=== PATIENT | female | born 1990 | race Caucasian/White ===

== ENCOUNTER 2017-03-16 07:46 | Day surgery (SDC) | payer OTHER ==
[~2017-03-16 07:46] MED LIST: RINGERS SOLUTION,LACTATED 1,000 ML IV PRN
--- OUTSIDE RECORDS SUMMARY | 2017-03-16 07:49 | XMS REPORT | Continuity of Care Document ---
:1990 Author Organization [facility] ([facility]) Address [address] [place] [address] Phone [phone] Care Team Providers Name Role Phone Provider, No-Primary Care Primary Care Provider Unavailable Source Comments This disclosure is being made pursuant to the Care Everywhere program, applicable federal and state laws, and may not contain all informaitonavailable regarding this patient.[facility] ([facility]) Active Allergies and Adverse Reactions No Known Allergies Current Medications Prescription Sig. Disp. Refills Start Date End Date Status multivitamin Take 1 tablet by Active with minerals 28-0.8 mouth daily. mg per tablet ibuprofen 800 mg Take 1 tablet (800 60 tablet 0 11/09/2016 Active tablet mg total) by mouth every 8 hours as needed for Pain. witch chapin pad as needed. 80 Each 3 11/09/2016 Active lanolin, hydrous Apply topically as 40 g 11 11/09/2016 Active (LANSINOH) topical needed. Apply to ointment nipples as needed. OTHER Breast Pump use as 1 Each 0 11/09/2016 Active directed escitalopram oxalate Take 1 tablet (10 30 tablet 1 11/09/2016 Active 10 mg tablet mg total) by mouth daily. Active Problems Problem Noted Date -induced hypertension in third trimester 11/03/2016 Desires (vaginal after ) trial 08/24/2016 Supervision of normal in second trimester 08/24/2016 Obesity affecting 08/24/2016 History of depression, currently 08/24/2016 History of low transverse section 08/24/2016 Most Recent Encounters Date Type Specialty Providers Description 12/22/2016 Office Visit Gynecology Karen Delgado, Dx: Cervical cancer Elvira Medrano screening (Primary Dx) Immunizations Name Dates Previously Given Next Due Influenza 07/23/2014 Influenza, quadrivalent PF 07/22/2016,07/23/2014 Tdap 10/01/2014 Social History Tobacco Use Types Packs/Day Years Used Date Never Smoker Smokeless Tobacco: Never Used Alcohol Use Drinks/Week oz/Week Comments No Last Filed Vital Signs Vital Sign Reading Time Taken Blood Pressure 135/78 12/22/2016 3:41 PM MEDICAL TECH Pulse 82 11/09/2016 8:15 AM MEDICAL TECH Temperature 37.4 C (99.3 F) 12/22/2016 3:41 PM MEDICAL TECH Respiratory Rate 16 11/09/2016 8:15 AM MEDICAL TECH Height 1.549 m (5' 0.98") 11/06/2016 2:50 PM MEDICAL TECH Weight 79.6 kg (175 lb 7.8 oz) 12/22/2016 3:41 PM MEDICAL TECH Body Mass Index 33.17 12/22/2016 3:41 PM MEDICAL TECH Oxygen Saturation 99% 11/09/2016 8:15 AM MEDICAL TECH Plan of Care Health Maintenance Due Date Last Done Comments Hepatitis B Vaccine (1 of 3 - 1990 Primary Series) Lipid Disorder Screening 01/05/2006 MMR Vaccine 01/05/2006 Cervical Cancer Screening 12/22/2019 12/22/2016 Td Vaccine 10/01/2024 10/01/2014 Tdap Vaccine Completed 10/01/2014 Influenza Vaccine: Seasonal Completed 07/22/2016, 07/23/2014, 07/23/2014 Results from Last 3 Months CYTOLOGY DIRECTOR DENTAL SERVICES EXAM - PAP TEST (12/22/2016 4:45 PM) Component Value Range Case Report DIRECTOR DENTAL SERVICES Cytopathology Report Case: [id number] Authorizing Provider:Elvira Medrano MD Collected: 12/22/2016 04:45 PM Ordering Location: [facility]: Received: 12/23/2016 09:45 AM Gynecology First Screen:Juan Carlos Reeder CT(ASCP) Specimen:Cytology Liquid Based PAP , Cervix (Endo/Ecto) Interpretation Negative for intraepithelial lesion or malignancy . Statement of Adequacy Satisfactory for interpretation. Endocervical component present. Specimen Description SurePath vial LMP 02/18/2016 Hormonal Status History of cancer No Previous abnormal No Education Note Pap tests are subject to both false negative and false positive results as evidenced by published data. Obtaining periodic Pap tests may minimize the consequence of false negatives. Your patient's res ults should be interpreted in this context, together with the patient's history and clinical findings. Specimen Hollister, Liquid-Based PAP - Cervix (Endo/Ecto)
[2017-03-16] MEDS ORDERED: BUPIVACAINE HCL/EPINEPHRINE 50 ML VIAL IJ ONE ×2 (08:55→09:00)
[2017-03-16] MEDS ORDERED: MORPHINE SULFATE 4 MG/ML SYRG IV PRN (09:45)
[2017-03-16] MEDS ORDERED: PROMETHAZINE HCL 12.5 MG in DEXTROSE 5 % IN WATER 50 ML IV PRN ×2 (09:45)
[2017-03-16] MEDS ORDERED: diphenhydrAMINE HCL 50 MG/ML VIAL IV PRN (09:45)
[2017-03-16] MEDS ORDERED: NALOXONE HCL 0.4 MG/ML VIAL IV PRN (09:45)
--- NOTE | 2017-03-16 09:58 | OR ---
Operative Report - Dictated Report Narrative: Date: 03/16/2017 Preoperative diagnosis: symptomatic cholelithiasis Postoperative diagnosis: Same Staff surgeon: Yovany Casas M.D. Procedure: Laparoscopic cholecystectomy Description of procedure: The patient was placed in the supine position and following the smooth induction of general endotracheal anesthesia the abdomen was prepped and draped in a sterile fashion. All port sites were anesthetized with Marcaine prior to incision. A 5 mm infraumbilical incision was carried out and blunt dissection was taken down to the abdominal wall. A perforating towel clip was placed through the umbilical raphe for countertraction. The abdomen was entered under direct vision with the 5 mm blunt port with the scope within the lumen of the trocar. The abdomen was then insufflated to a pressure of 15 mmHg with carbon dioxide. Under direct vision a superior midline 12 mm port into right flank 5 mm ports were inserted. The fundus of the gallbladder was grasped and elevated towards the diaphragm. There were adhesions of omentum to the undersurface of the gallbladder that were taken down with blunt dissection. An additional clamp was applied to the infundibulum for countertraction. The cystic duct was isolated and doubly clipped and divided with a critical view of safety. As was the cystic artery. The gallbladder was then taken out of the fossa with a combination of blunt dissection scissor dissection and electrocautery. The gallbladder was placed in an Endo Catch bag and delivered out through the superior midline port. This port was returned to the abdominal cavity and pneumoperitoneum was reestablished. Right upper quadrant was copiously irrigated and all of the irrigant was evacuated. Hemostasis appeared to be adequate. There is no evidence of bile leak. The superior midline port site fascia was closed with a Endo Close device and heavy Vicryl suture. The pneumoperitoneum was evacuated the incisions were closed with subcuticular stitches of 4-0 Vicryl and then sealed with Dermabond. Patient tolerated procedure well without any apparent complications and was discharged from the operating room in stable condition.
[2017-03-16] MEDS ORDERED: HYDROcodone/ACETAMINOPHEN 1 EACH TABLET PO PRN (10:51)
[2017-03-16 13:29] VITALS: BP 114/64
== END 2017-03-16 07:47 | disposition home or self-care (01) ==
LOC: AMB 07:46
PROVIDERS: ATTEND Specialist
PROC: 0FT44ZZ Resection of Gallbladder, Percutaneous Endoscopic Approach (ICD-10-PCS; principal; 2017-03-16 09:00)
DX: K80.10 Calculus of gallbladder with chronic cholecystitis without obstruction (principal); E66.9 Obesity, unspecified; Z68.33 Body mass index [BMI] 33.0-33.9, adult